=== PATIENT | female | born 1980 | race Caucasian/White ===

== ENCOUNTER 2017-12-25 07:30 | Inpatient (IN) ==
[2017-12-25] MEDS ORDERED: Albuterol 2.5 MG/3 ML NEBULIZER IH ONE (07:57)
[2017-12-25] MEDS ORDERED: Albuterol 2.5 MG/3 ML NEBULIZER ONE (08:00)
[2017-12-25] MEDS ORDERED: Plasma-Lyte A (PH 7.4) 1,000 ML IVC SCH (08:00)
[2017-12-25] MEDS ORDERED: *HR* Midazolam HCl 2 MG/2 ML VIAL ONE (08:02)
[2017-12-25] MEDS ORDERED: *HR* FentaNYL (PF) 100 MCG/2 ML VIAL ONE ×2 (08:02→10:03)
[2017-12-25] MEDS ORDERED: *HR* Succinylcholine 200 MG/10 ML VIAL IVP ONE (08:02)
[2017-12-25] MEDS ORDERED: Lidocaine -MPF 2% 2 ML VIAL ONE (08:02)
[2017-12-25] MEDS ORDERED: *HR* Propofol 200 MG/20 ML VIAL IVP ONE (08:02)
[2017-12-25] MEDS ORDERED: *HR* Rocuronium Bromide 50 MG/5 ML VIAL ONE (08:05)
--- NOTE | 2017-12-25 08:32 | Anesthesia Evaluation PreOp ---
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 Lap.) : No Test: Negative (12/19/2017) Alcohol Use: none Drug use: none Medications and Allergies No Known Home Drugs 12/25/17 [History] 3 Allergy/AdvReac Type Severity Reaction Status Date / Time No Known Allergies Allergy Verified 12/25/17 08:03 - Meds/Allergy Pre-op Review Medications Reviewed: Yes Allergies Reviewed: Yes Beta Blockers on Current Med List: No Anesthesia Results - Labs Laboratory Tests 12/01/17 12/01/17 12/19/17 14:50 14:50 08:45 WBC 9.7 Hgb 14.3 Hct 43.9 Plt Count 277 Sodium 137 Potassium 3.8 Chloride 104 Carbon Dioxide 28 BUN 17 Creatinine 0.73 Serum , Qual 12/19/17 08:45 WBC Hgb Hct Plt Count Sodium Potassium Chloride Carbon Dioxide BUN Creatinine Serum , Qual Negative - Imaging EKG: report reviewed (SINUS RHYTHM WITH SINUS ARRHYTHMIA INCOMPLETE RIGHT BUNDLE BRANCH BLOCK) Anesthesia Exam O2 Sat Height 1.68 m Height 1.68 m Height 1.68 m Weight 99.337 kg Weight 99.337 kg Weight 99.337 kg O2 Sat by Pulse Oximetry 99 O2 Sat by Pulse Oximetry 99 Vital Signs Temp Pulse Resp BP Pulse Ox 98.8 F 83 18 115/76 99 12/25/17 07:55 12/25/17 07:55 12/25/17 07:55 12/25/17 07:55 12/25/17 07:55 NPO (# of Hours): > 8 Hrs Pain Scale: 0 Pain Scale Used: Numeric (1 - 10) - HEENT Pupil (Motor): Pupils equal, EOMI Mallampati: II Teeth: Missing Denture Type: Upper: Complete, Lower: Partial Oral Opening: Greater than 3 - PHARMACY BENEFIT MANAGER LOC: Oriented PHARMACY BENEFIT MANAGER Motor: Normal RUE, Normal LUE, Normal RLE, Normal LLE, Normal Face PHARMACY BENEFIT MANAGER Sensory: Normal: RUE, LUE, RLE, LLE, Face - Cardiac Rhythm: Regular Murmur: None JVD: No Carotid Bruit: No - Pulmonary Breath Sounds: bilateral Clear Respiratory Effort: Symmetrical Anesthesia Assess/Plan ASA Score: 2 Modified Jessica Scale for Level of Consciousness: Cooperative, oriented, and tranquil Anesthetic Plan: General Autologous Blood: Yes Monitoring Plan: Standard Monitors Recovery Plan: PACU
[2017-12-25] MEDS ORDERED: Naloxone 0.4 MG/ML INJ IVP PRN (08:35)
--- NOTE | 2017-12-25 08:35 | History & Physical Report ---
Date of Encounter: 12/25/17 Time of Encounter: 08:34 24 Hour HP Update - Instructions Instructions: If the History and Physical is less than 30 days old and was completed prior to A.M. admission and or procedure and has NOT been updated on calendar day of procedure please complete this update prior to performing procedure. - Update Patient reports changes in Medical Condition: No Changes in examination, assessment, or condition: No Changes in Medication: No Preop tests/diagnostics Reviewed: Yes Surgery Remains Indicated: Yes Consent for Planned Operative Procedure(s) Verified: Yes - Pre-Operative Checklist Preoperative Checklist Indicated: Yes Prophylactic Antibiotic Ordered: Yes Home Medications Include Beta Jeny: No Beta Jeny Taken Today (Day of Surgery): No Beta Jeny Taken Yesterday (Day Prior to Surgery): No Is VTE Prophylaxis Indicated?: Yes
[2017-12-25] MEDS ORDERED: *HR* Morphine Sulfate/PF 10 MG/10 ML AMPUL ONE (08:47)
[2017-12-25] MEDS ORDERED: EPHEDrine 50 MG/ML VIAL ONE (08:53)
[2017-12-25] MEDS ORDERED: Water for inj. (sterile) 10 ML IV ONE (09:30)
[2017-12-25] MEDS ORDERED: Ondansetron 4 MG/2 ML VIAL ONE (09:43)
[2017-12-25] MEDS ORDERED: Dexamethasone 4 MG/ML VIAL ONE (09:43)
[2017-12-25] MEDS ORDERED: CeFAZolin Syringe 2,000MG/20 ML SYR IVPB ONE (10:00)
[2017-12-25] MEDS ORDERED: *HR* Promethazine 25 MG/ML VIAL IVP PRN (10:03)
[2017-12-25] MEDS ORDERED: Ondansetron 4 MG/2 ML VIAL IVP ONE (10:03)
[2017-12-25] MEDS ORDERED: ceFAZolin 2,000 MG in Water for inj. (sterile) 20 ML IVP ONE (10:08)
[2017-12-25] MEDS ORDERED: Acetaminophen IV 1,000 MG/100 ML INFUS..BTL ONE (10:08)
[2017-12-25] MEDS ORDERED: Ketorolac 30 MG/ML VIAL ONE (10:18)
--- NOTE | 2017-12-25 11:54 | OB/GYN Procedure Note ---
OB-SUPERINTENDENT SERVICE: Procedure - Diagnosis Date of procedure: 12/25/17 Pre-op diagnosis: pelvic pain, severe pelvic adhesive disease, adenomyosis, dyspareunia Post-op diagnosis: same - Procedure Procedure: LEANN, BS, excision of endometrioma on left ovary Surgeon: Bebe Crowell Was there an electrician assistant present: Yes Photographic Developer And Printer: Dustin Sawyer Anesthesia Type: General Estimated blood loss (cc): 200 Fluids: crystalloid Procedure Complications: none Specimens collected: uterus, cervix, tubes, excised endometrioma Disposition: same day Findings: entire anterior wall of the uterus attached to the bladder, omentum adherent to ant abd wall, adhesions communicating large bowel to uterus. Narrative: Indications: Mrs Hanson is a 37 y/o s/p diagnostic laparosocpy for pelvic pain, dyspareunia and adenomyosis, possibly endometriosis. She was found to have severe pelvic adhesive disease. She has had 3 C/S and the decision was made to perform a total abdominal hysterectomy for complete resolution. Procedure: After informed consent was obtained, the patient was taken to the Operating Room where general anesthesia was administered without difficulty. The patient was then placed in dorsal lithotomy position, prepped and draped in the usual sterile fashion. A pfannensteil incision was made around the old scar which was excised before the incision was carried down to the underlying layer of the fascia. The fascia was excised and extended laterally with Fernández scissors. The rectus muscle was then in the midline. The peritoneum was identified and entered bluntly to reveal the omentum. The omentum was adherent to the anterior abdominal wall. This was taken down by suture ligation as well as with blunt dissection. The abdomen was explored and the above findings noted. Parking sponges were placed into the abdomen. We proceeded to dissect the anterior wall of the uterus off the bladder painstakingly using both sharp and blunt dissection. After about 30 minutes of dissection, we were able to identify the round ligaments. The round ligaments were identified bilaterally, clamped with the Enseal device, coagulated and cut. Hemostasis was achieved. The uterovarian ligaments bilaterally were then isolated through a broad ligament window created from taking down the round ligaments. The uterovarian ligaments bilaterally were clamped, coagulated and cut with the Enseal device. Both uterine and ovarian vessels were noted to be hemostatic. Attention was then turned to the vesicouterine peritoneum and the bladder was bluntly dissected off further to reveal the cervix. The uterine vessels were skeletonized, then clamped, coagulated and cut with the Enseal device on both sides. This process was continued down to the level of the cardinal ligaments until we felt it was safe to apply Z-clamps tip to tip beneath the cervix. A pair of scissors was used to amputate the uterus and cervix. The vaginal cuff was closed in multiple figure of eight sutures of 0-vicryl. Amee was applied to the cervix. The Enseal device was then used to amputate the tubes and excise a smll endometrioma that was located on the left ovary. Surgical sites were noted to be hemostatic. Packing sponges were removed and the fascia was then closed with #0 Vicryl. The subcutaneous tissue was closed with 3-0 vicryl. The skin was closed with 4-0 vicryl. A cystoscopy was performed which showed flow of urine from both ureteral orifices and no bladder injuries. The patient tolerated the procedure well. The sponge, lap, and needle counts were correct x2. She was taken to the recovery room in stable condition.
[2017-12-25] MEDS: MORPHINE SUL Oral CONC 10 MG/0.5 ML ORAL.SYG SL PRN ×3 (12:19→14:42)
--- NOTE | 2017-12-25 12:52 | Anesthesia Evaluation Post Op ---
Date of Encounter: 12/25/17 Time of Encounter: 12:51 - Vital Signs Vital Signs: Vital Signs/O2 Sat, Most Current Temp Pulse Resp BP Pulse Ox 99.9 F H 83 16 121/68 96 12/25/17 12:31 12/25/17 12:41 12/25/17 12:41 12/25/17 12:41 12/25/17 12:41 - Lungs Lungs: Clear Ascult./Percussion - Airway Airway: Non-obstructed - Cardiovascular Regular Rate - Mental Status Mental Status: Alert & Oriented, Answers Appropriately - Pain Pain Scale: 0 Pain Scale used: Numeric (1 - 10) - Nausea Vomiting Nausea Vomiting: Not Present - Hydration Hydration: NPO, Whyte catheter - Discharge PostOp Status: Transfer Patient to floor
[2017-12-25] MEDS: Ringers Solution, Lactated 1,000 ML IVC SCH (16:56)
[2017-12-25] MEDS: Ondansetron 4 MG/2 ML VIAL IVP PRN (19:35)
[2017-12-25] MEDS: *HR* OxyCODONE/APAP 5/325 TABLET PO PRN (21:10)
[2017-12-26] MEDS: *HR* OxyCODONE/APAP 5/325 TABLET PO PRN ×5 (02:26→21:29)
[2017-12-26 04:59] LABS: Basophils % 0.2 %; Eosinophils % 0.1 %; Hematocrit 36.7 % (35.3-44.9); Immature Granulocytes % 0.5 % (0-4); Lymphocytes # 1.5 K/mcL (0.6-4.6); Lymphocytes % 8.4 %; Mean Corpuscular HGB Conc 32.2 g/dL (31.6-35.5); Mean Corpuscular Hemoglobin 29.7 pg (28.0-33.3); Mean Corpuscular Volume 92.4 fL (83.0-100.0); Mean Platelet Volume 11.1 fL (9.4-12.4); Monocytes # 1.3 K/mcL (0.0-1.3); Monocytes % 7.2 %; Neutrophils # 14.6 K/mcL (1.6-8.9); Nucleated Red Blood Cells 0.2 /100 WBC (0); Platelet Count 248 K/mcL (140-400); Red Blood Count 3.97 M/mcL (3.82-4.97); Red Cell Distribution Width 13.2 % (11.5-14.5); Segmented Neutrophils % 83.6 %
[2017-12-26 05:09] LABS: Hemoglobin 11.8 g/dL (11.5-15.4)
--- NOTE | 2017-12-26 07:46 | OB/GYN Progress Note ---
Date of Encounter: 12/26/17 Time of Encounter: 07:42 - Assessment and Plan (1) S/P complete hysterectomy Current Visit: Yes Status: Acute I counseled the patient that she has hypoactive bowel sounds so she should take it easy with breakfast starting with her coffee first seeing if she tolerates it before going on to her toast, she wants to go home so I will have her ambulate, urinate and if all is well and her pain continues to be under control, I will discharge her later tonight, dressing will be removed tonight, continue current inpt care Subjective - Subjective Interval history: patient doing very well, moving from chair to bed, tolerated clears, wants breakfast, no flatuce yet, pain is under control, berger was taken out around 5 this AM, not yet urinated Objective - Vital Signs Latest vital signs: Vital Signs Temp Pulse Resp BP Pulse Ox 12/26/17 02:50 98.6 F 80 16 103/68 97 12/25/17 23:13 98.3 F 86 14 112/68 96 12/25/17 19:55 98.2 F 88 16 107/73 97 12/25/17 16:15 98.2 F 98 16 116/73 97 12/25/17 15:15 98.1 F 95 16 109/71 97 12/25/17 14:15 97.9 F 102 16 108/71 96 12/25/17 13:45 99.1 F 94 18 119/73 96 12/25/17 13:15 97.8 F 86 16 114/76 98 12/25/17 12:51 83 18 116/72 96 12/25/17 12:41 83 16 121/68 96 12/25/17 12:31 99.9 F H 87 16 114/67 97 12/25/17 12:21 84 18 118/70 97 12/25/17 12:11 94 16 116/65 96 12/25/17 12:01 100.1 F H 100 12 122/87 100 12/25/17 08:10 18 115/76 99 12/25/17 07:55 98.8 F 83 18 115/76 99 Intake and Output 12/25/17 12/25/17 12/26/17 15:59 23:59 07:59 Intake Total 240 / 240 440 / 440 Output Total 300 / 300 500 / 500 500 / 500 Balance -300 / -300 -260 / -260 -60 / -60 Intake: Oral 240 / 240 440 / 440 Output: Estimated Blood Loss 200 / 200 Urine Amount (Catheter) 100 / 100 Catheter 500 / 500 500 / 500 Other: Weight 99.337 kg 100.607 kg Patient Weight 12/26/17 23:59 Weight 100.607 kg - I&O's I&O's: Intake & Output 12/23/17 12/24/17 12/25/17 12/26/17 22:59 23:59 23:59 23:59 Intake Total 240 / 240 440 / 440 Output Total 800 / 800 500 / 500 Balance -560 / -560 -60 / -60 Weight 99.337 kg 100.607 kg - Exam Lungs: bilateral: normal Chest: Normal S1, Normal S2 Extremities: Present: normal Abdomen: Present: soft Incision OB: Present: dressed - Labs Labs: Abnormal lab results WBC 17.5 K/mcL (4.3-11.1) H 12/26/17 04:16 Neutrophils # 14.6 K/mcL (1.6-8.9) H 12/26/17 04:16 Nucleated RBCs/100 WBC 0.2 /100 WBC (0) H 12/26/17 04:16 Consult Discharge Plan - Plan Referrals: René De León DO [Primary Care Provider] -
[2017-12-26] MEDS: Ondansetron 4 MG/2 ML VIAL IVP PRN (10:45)
[2017-12-26] MEDS: Ringers Solution, Lactated 1,000 ML IVC SCH (13:10)
[2017-12-26] MEDS: Ibuprofen 600 MG TABLET PO PRN ×2 (17:43→22:47)
[2017-12-26] MEDS ORDERED: *HR* OxyCODONE Immed Rel 5 MG TABLET PO ONE (17:54)
[2017-12-26] MEDS: Simethicone 80 MG TAB.CHEW PO PRN (22:47)
[2017-12-27] MEDS: *HR* OxyCODONE/APAP 5/325 TABLET PO PRN (03:50)
[2017-12-27] MEDS: Simethicone 80 MG TAB.CHEW PO PRN (04:30)
--- NOTE | 2017-12-27 07:03 | OB/GYN Progress Note ---
Date of Encounter: 12/27/17 Time of Encounter: 07:01 - Assessment and Plan (1) S/P complete hysterectomy Current Visit: Yes Status: Acute ok for discharge, will see patient in the office in 2 weeks Subjective - Subjective Interval history: patient doing very well this AM, ambulating, tolerating PO, urinating without complaints, pain is under control, wants to go home Objective - Vital Signs Latest vital signs: Vital Signs Temp Pulse Pulse Resp BP Pulse Ox 12/27/17 03:45 98.1 F 81 14 107/65 97 12/27/17 00:20 97.8 F 75 75 14 92/60 96 12/26/17 19:15 98.1 F 78 16 118/72 99 12/26/17 16:32 97.6 F 83 16 108/65 96 12/26/17 11:37 98.2 F 87 16 111/74 96 12/26/17 07:45 98.6 F 84 14 103/69 98 Intake and Output 12/26/17 12/26/17 12/27/17 15:59 23:59 07:59 Intake Total 600 / 600 Output Total 1100 / 1100 400 / 400 Balance -1100 / -1100 200 / 200 Intake: Oral 600 / 600 Output: Urine 1100 / 1100 400 / 400 Other: Weight 103.782 kg Patient Weight 12/27/17 23:59 Weight 103.782 kg - I&O's I&O's: Intake & Output 12/24/17 12/25/17 12/26/17 12/27/17 23:59 23:59 23:59 23:59 Intake Total 240 / 240 2040 / 2040 Output Total 800 / 800 1999 / 1999 Balance -560 / -560 40 / 40 Weight 99.337 kg 100.607 kg 103.782 kg - Exam Lungs: bilateral: normal Chest: Normal S1, Normal S2 Extremities: Present: normal Abdomen: Present: soft Incision OB: Present: normal, intact - Labs Labs: Abnormal lab results WBC 17.5 K/mcL (4.3-11.1) H 12/26/17 04:16 Neutrophils # 14.6 K/mcL (1.6-8.9) H 12/26/17 04:16 Nucleated RBCs/100 WBC 0.2 /100 WBC (0) H 12/26/17 04:16 Consult Discharge Plan - Plan Referrals: René De León DO [Primary Care Provider] -
--- NOTE | 2017-12-27 07:06 | Discharge Summary ---
Date of Encounter: 12/27/17 Time of Encounter: 07:05 - Discharge Diagnosis (1) S/P complete hysterectomy Priority: Primary Status: Acute Comments: patient doing very well this AM, ambulating, tolerating PO, urinating without complaints, pain is under control, wants to go home ok for discharge - Discharge Medications Home Medications: No Known Home Drugs 12/25/17 [History] Allergies/Adverse Reactions: 3 Allergy/AdvReac Type Severity Reaction Status Date / Time No Known Allergies Allergy Verified 12/25/17 08:03 Data Procedures and tests throughout hospitalization: Laboratory Tests 12/26/17 04:16 WBC 17.5 H RBC 3.97 Hgb 11.8 D Hct 36.7 MCV 92.4 MCH 29.7 MCHC 32.2 RDW 13.2 Plt Count 248 MPV 11.1 Immature Gran % 0.5 Seg Neutrophils % 83.6 Lymphocytes % 8.4 Monocytes % 7.2 Eosinophils % 0.1 Basophils % 0.2 Neutrophils # 14.6 H Lymphocytes # 1.5 Monocytes # 1.3 Eosinophils # 0.0 Basophils # 0.0 Nucleated RBCs/100 WBC 0.2 H Date of admission: 12/25/17 13:11 Primary care physician: René De León DO - Patient Status Disposition: Home, Self-Care Condition: Good Functional capacity at discharge: independent ambulation Overall status at discharge: patient is progressing back to baseline - Discharge Instructions Follow Up With: René De León DO [Primary Care Provider] - Hospital Course EMPLOYMENT REPRESENTATIVE Time Attestation: Total time spent providing and/or coordinating discharge services: Exam - Constitutional Vitals: Temp Pulse Resp BP Pulse Ox 98.1 F 81 14 107/65 97 12/27/17 03:45 12/27/17 03:45 12/27/17 03:45 12/27/17 03:45 12/27/17 03:45 General appearance IM: A&O X 3 - Respiratory Respiratory exam: Present: CTAB - Cardiovascular Cardiovascular exam IM: Present: RRR - GI/Abdominal GI/Abdominal exam IM: normal bowel sounds Incision: normal, intact - External exam: normal external exam - Extremities Exam Extremities exam IM: Present: warm - VTE Documentation of Mechanical Device: Intermittent pneumatic compression device
[2017-12-27 07:44] VITALS: BP 107/75
== END 2017-12-27 08:16 | disposition home or self-care (01) | DRG 513 ==
LOC: SAMDAY 07:30 → 1NENUOBS 13:11
PROVIDERS: ADMIT Student in an Organized Health Care Education/Training Program; ATTEND Student in an Organized Health Care Education/Training Program

== ENCOUNTER 2019-07-04 10:05 | Inpatient (IN) ==
[2019-07-04 11:17] LABS: Basophils % 0.2 %; Eosinophils # 0.1 K/mcL (0.0-0.6); Eosinophils % 0.7 %; Hematocrit 40.2 % (35.3-44.9); Hemoglobin 13.6 g/dL (11.5-15.4); Immature Granulocytes % 0.6 % (0-4); Lymphocytes # 1.1 K/mcL (0.6-4.6); Lymphocytes % 6.2 %; Mean Corpuscular HGB Conc 33.8 g/dL (31.6-35.5); Mean Corpuscular Hemoglobin 29.6 pg (28.0-33.3); Mean Corpuscular Volume 87.6 fL (83.0-100.0); Mean Platelet Volume 10.7 fL (9.4-12.4); Monocytes # 1.1 K/mcL (0.0-1.3); Monocytes % 6.5 %; Neutrophils # 14.8 K/mcL (1.6-8.9); Platelet Count 181 K/mcL (140-400); Red Blood Count 4.59 M/mcL (3.82-4.97); Red Cell Distribution Width 13.2 % (11.5-14.5); Segmented Neutrophils % 85.8 %; White Blood Count 17.2 K/mcL (4.3-11.1)
[2019-07-04 11:30] LABS: Calcium 8.7 mg/dL (8.6-10.3); Potassium 3.7 mEq/L (3.5-5.1)
[2019-07-04 12:12] LABS: Bilirubin,Urine Small (Negative); Blood,Urine Moderate (Negative); Color,Urine Dark Yellow (Yellow); Glucose,Urine (UA) Normal (Normal); Ketones,Urine Negative (Negative); Leukocyte Esterase,Urine Large (Negative); Nitrite,Urine Negative (Negative); PH,Urine 6.5 pH Units (5.0-8.0); Protein,Urine >=300 mg/dL (Neg-Trace); Specific Gravity,Urine 1.024 (1.010-1.025)
[2019-07-04 12:14] LABS: Bacteria,Urine Moderate per hpf (None-Few); Hyaline Casts,Urine Few per lpf (None-Few); RBC,Urine 15-30 per hpf (0-3); Squamous Epithelial Cell,Urine Many per lpf (None-Few); WBC,Urine TNTC per hpf (0-3)
[2019-07-04 12:19] LABS: Clarity,Urine Hazy (Clear)
[2019-07-04] MEDS ORDERED: 0.9 % Sodium Chloride 1,000 ML IVC ONE ×3 (12:19→19:28)
[2019-07-04] MEDS ORDERED: *HR* HYDROmorphone (PF) 1 MG/ML SYRINGE IVP ONE ×2 (12:22→13:27)
[2019-07-04] MEDS ORDERED: *HR* Promethazine 25 MG/ML VIAL IVP ONE (12:22)
[2019-07-04] MEDS ORDERED: cefTRIAXone 1,000 MG in Water for inj. (sterile) 10 ML IVP ONE (12:29)
[2019-07-04] MEDS ORDERED: *HR* Promethazine 25 MG/ML VIAL IM ONE (12:45)
--- NOTE | 2019-07-04 13:20 | Emergency Department Note ---
Disposition Clinical Impression: Nephrolithiasis, Left ureteral stone Urinary tract infection Qualifiers: Urinary tract infection type: site unspecified Hematuria presence: with hematuria Qualified Code(s): N39.0 - Urinary tract infection, site not specified Disposition: Admitted As Inpatient Condition: Good Time of Disposition: 14:14 Abdominal Pain HPI - General Chief Complaint: ED Abdominal Pain Stated Complaint: abd pain Time Seen by Provider: 07/04/19 12:13 Source: patient Nursing Notes Reviewed: Yes Vital Signs Reviewed: Yes - History of Present Illness HPI Narrative: 39 yo woman diagnosed with 7 mm kidney stone in left ureter 07/01/19 returned to ED today due to increased pain, fever to 102F at home and repeated vomiting. Patient states she has not been able to eat or drink today. She was sent home with morphine and Zofran, which did not help her symptoms. Pain Scale: 8 - Related Data Home Medications Medication Instructions Recorded Confirmed No Known Home Drugs 07/04/19 07/04/19 Allergies Allergy/AdvReac Type Severity Reaction Status Date / Time No Known Allergies Allergy Verified 07/04/19 10:38 All systems ED: reviewed and negative except as stated. 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 Pupils equal and reactive. Cardio: Regular rate and rhythm, no murmur, no peripheral edema, good perfusion to all extremities, no cyanosis Resp: Equal breath sounds bilaterally, no wheeze, no cough GI: Abdomen soft, nondistended, +diffusely tender to palpation. No ecchymoses, no rash. : +Mild suprapubic tenderness; no distention MSK: Normal ROM, no joint swelling or erythema Neuro: CNI-XII intact, strength and sensation WNL Psych: Appropriate affect - General Limitations: no limitations General appearance: alert, in no apparent distress Course Course Narrative: Patient very uncomfortable on presentation. Given recent CT and no significant changes to symptoms, will treat for ongoing nephrolithiasis and evaluate for signs of infection. CBC, BMP, UA, KUB ordered. Given dilaudid and phenergan with IVF bolus. Anticipate admission for complicated kidney stone. Vital Signs Temperature 98.7 F 07/04/19 10:39 Pulse Rate 117 07/04/19 10:39 Respiratory Rate 20 07/04/19 10:39 Blood Pressure 106/72 07/04/19 10:39 O2 Sat by Pulse Oximetry 96 07/04/19 10:39 Temperature 98.7 F 07/04/19 10:39 Pulse Rate 99 07/04/19 14:09 Respiratory Rate 16 07/04/19 14:09 Blood Pressure 117/82 07/04/19 14:09 O2 Sat by Pulse Oximetry 99 07/04/19 14:09 Oxygen Delivery Oxygen Delivery Room Air Abdominal Pain - MDM Narrative Medical decision making narrative: VS stable. Increasing leukocytosis (17.2), UA consistent with UTI. Culture from 07/01/19 positive for E. coli. Rocephin 1g given. Plan to admit for management of complicated nephrolithiasis and possible stone removal. ED opted to not repeat CT given scan on 07/01 and presence of stone on KUB today. Patient agreed with plan. Hospitalist accepted admission. Urology consulted, agreed with admission and will see her. Although hospitalist requested repeat CT, urology stated that it would not be necessary, so we decided not to repeat it while she is in the ED. - Differential Diagnosis Differential Diagnosis: Likely: calculus of kidney - Medical Records Medical records reviewed: Yes I reviewed the patient's medical records. - Lab Data Lab results reviewed: Yes I reviewed the patient's lab results. Result diagrams: 07/04/19 10:57 07/04/19 10:57 Lab Results 07/04/19 07/04/19 07/04/19 Range/Units 10:57 10:57 11:52 WBC 17.2 H (4.3-11.1) K/mcL RBC 4.59 (3.82-4.97) M/mcL Hgb 13.6 (11.5-15.4) g/dL Hct 40.2 (35.3-44.9) % MCV 87.6 (83.0-100.0) fL MCH 29.6 (28.0-33.3) pg MCHC 33.8 (31.6-35.5) g/dL RDW 13.2 (11.5-14.5) % Plt Count 181 (140-400) K/mcL MPV 10.7 (9.4-12.4) fL Immature Gran % 0.6 (0-4) % Seg Neutrophils % 85.8 % Lymphocytes % 6.2 % Monocytes % 6.5 % Eosinophils % 0.7 % Basophils % 0.2 % Neutrophils # 14.8 H (1.6-8.9) K/mcL Lymphocytes # 1.1 (0.6-4.6) K/mcL Monocytes # 1.1 (0.0-1.3) K/mcL Eosinophils # 0.1 (0.0-0.6) K/mcL Basophils # 0.0 (0.0-0.2) K/mcL Sodium 133 L (136-145) mEq/L Potassium 3.7 (3.5-5.1) mEq/L Chloride 99 (98-107) mEq/L Carbon Dioxide 25 (23-29) mEq/L BUN 22 H (6-20) mg/dL Creatinine 1.30 H (0.60-1.20) mg/dL Est GFR ( Amer) 55 L (> 60) Est GFR (Non-Af Amer) 46 L (> 60) BUN/Creatinine Ratio 17 (6-26) Glucose 105 (70-105) mg/dL Calculated Osmolality 280 (280-300) Calcium 8.7 (8.6-10.3) mg/dL Urine Color Dark Yellow (Yellow) Urine Clarity Hazy A (Clear) Urine pH 6.5 (5.0-8.0) pH Units Ur Specific Seymour 1.024 (1.010-1.025) Urine Protein >=300 H (Neg-Trace) mg/dL Urine Glucose (UA) Normal (Normal) mg/dL Urine Ketones Negative (Negative) mg/dL Urine Blood Moderate H (Negative) Urine Nitrite Negative (Negative) Urine Bilirubin Small H (Negative) Urine Urobilinogen 4.0 H (Normal) mg/dL Ur Leukocyte Esterase Large H (Negative) Urine Microscopic RBC 15-30 H (0-3) per hpf Urine Microscopic WBC TNTC H (0-3) per hpf Ur Squamous Epith Cells Many H (None-Few) per lpf Urine Bacteria Moderate H (None-Few) per hpf Hyaline Casts Few (None-Few) per lpf Ur Culture Indicated? YES A (NO) - Radiology Data Radiology results reviewed: Yes I reviewed the patient's radiology results. KUB X-Ray 07/04/19 12:46 IMPRESSION: 7 mm x 5 mm calculus distal left ureter correlating to findings seen on CT from 3 days earlier. D/ / Jaun Buck MD / Jaun Buck MD Interpreting Provider: Jaun Buck MD - EKG Data EKG attestation: Yes I reviewed and interpreted this EKG. EKG shows normal: sinus rhythm Rate: tachycardia Interpretation: no acute changes, unchanged when compared to prior tracing (date) (07/01/19)
--- NOTE | 2019-07-04 13:39 | Emergency Department Note ---
Disposition Clinical Impression: Nephrolithiasis, Left ureteral stone Urinary tract infection Qualifiers: Urinary tract infection type: site unspecified Hematuria presence: with hematuria Qualified Code(s): N39.0 - Urinary tract infection, site not specified; R31.9 - Hematuria, unspecified Disposition: Admitted As Inpatient Condition: Good Time of Disposition: 14:14 General Adult HPI - General Chief complaint: ED Abdominal Pain Stated complaint: abd pain Time Seen by Provider: 07/04/19 12:13 Source: patient Limitations: no limitations Nursing Notes Reviewed: Yes Vital Signs Reviewed: Yes - History of Present Illness Pain Scale: 8 - Related Data Home Medications Medication Instructions Recorded Confirmed No Known Home Drugs 07/04/19 07/04/19 Allergies Allergy/AdvReac Type Severity Reaction Status Date / Time No Known Allergies Allergy Verified 07/04/19 10:38 Constitutional: Reports: fever, chills Gastrointestinal: Reports: abdominal pain, nausea, vomiting Past Medical History - Past Medical History Medical history: Reports: kidney stones Surgical history: Reports: , other Psychiatric history: Reports: no psych history 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: dysfunctional uterine bleed, endometriosis - Social History Smoking Status: Current every day smoker Smokeless Tobacco Status: No Alcohol use: Reports: none Drug use: Reports: none Physical Exam - General Limitations: no limitations General appearance: alert, in no apparent distress Course Vital Signs Temperature 98.7 F 07/04/19 10:39 Pulse Rate 117 07/04/19 10:39 Respiratory Rate 20 07/04/19 10:39 Blood Pressure 106/72 07/04/19 10:39 O2 Sat by Pulse Oximetry 96 07/04/19 10:39 Temperature 98.7 F 07/04/19 10:39 Pulse Rate 99 07/04/19 14:09 Respiratory Rate 16 07/04/19 14:09 Blood Pressure 117/82 07/04/19 14:09 O2 Sat by Pulse Oximetry 99 07/04/19 14:09 Oxygen Delivery Oxygen Delivery Room Air Medical Decision Making - Medical Records Medical records reviewed: Yes I reviewed the patient's medical records. - Lab Data Lab results reviewed: Yes I reviewed the patient's lab results. Result diagrams: 07/04/19 10:57 07/04/19 10:57 Lab Results 07/04/19 07/04/19 07/04/19 Range/Units 10:57 10:57 11:52 WBC 17.2 H (4.3-11.1) K/mcL RBC 4.59 (3.82-4.97) M/mcL Hgb 13.6 (11.5-15.4) g/dL Hct 40.2 (35.3-44.9) % MCV 87.6 (83.0-100.0) fL MCH 29.6 (28.0-33.3) pg MCHC 33.8 (31.6-35.5) g/dL RDW 13.2 (11.5-14.5) % Plt Count 181 (140-400) K/mcL MPV 10.7 (9.4-12.4) fL Immature Gran % 0.6 (0-4) % Seg Neutrophils % 85.8 % Lymphocytes % 6.2 % Monocytes % 6.5 % Eosinophils % 0.7 % Basophils % 0.2 % Neutrophils # 14.8 H (1.6-8.9) K/mcL Lymphocytes # 1.1 (0.6-4.6) K/mcL Monocytes # 1.1 (0.0-1.3) K/mcL Eosinophils # 0.1 (0.0-0.6) K/mcL Basophils # 0.0 (0.0-0.2) K/mcL Sodium 133 L (136-145) mEq/L Potassium 3.7 (3.5-5.1) mEq/L Chloride 99 (98-107) mEq/L Carbon Dioxide 25 (23-29) mEq/L BUN 22 H (6-20) mg/dL Creatinine 1.30 H (0.60-1.20) mg/dL Est GFR ( Amer) 55 L (> 60) Est GFR (Non-Af Amer) 46 L (> 60) BUN/Creatinine Ratio 17 (6-26) Glucose 105 (70-105) mg/dL Calculated Osmolality 280 (280-300) Calcium 8.7 (8.6-10.3) mg/dL Urine Color Dark Yellow (Yellow) Urine Clarity Hazy A (Clear) Urine pH 6.5 (5.0-8.0) pH Units Ur Specific [place] 1.024 (1.010-1.025) Urine Protein >=300 H (Neg-Trace) mg/dL Urine Glucose (UA) Normal (Normal) mg/dL Urine Ketones Negative (Negative) mg/dL Urine Blood Moderate H (Negative) Urine Nitrite Negative (Negative) Urine Bilirubin Small H (Negative) Urine Urobilinogen 4.0 H (Normal) mg/dL Ur Leukocyte Esterase Large H (Negative) Urine Microscopic RBC 15-30 H (0-3) per hpf Urine Microscopic WBC TNTC H (0-3) per hpf Ur Squamous Epith Cells Many H (None-Few) per lpf Urine Bacteria Moderate H (None-Few) per hpf Hyaline Casts Few (None-Few) per lpf Ur Culture Indicated? YES A (NO) - Radiology Data Radiology results reviewed: Yes I reviewed the patient's radiology results. KUB X-Ray 07/04/19 12:46 IMPRESSION: 7 mm x 5 mm calculus distal left ureter correlating to findings seen on CT from 3 days earlier. D/ / 07/04/2019 13:24:10 Jaun Buck MD / latosha Interpreting Provider: Jaun Buck MD - EKG Data EKG #1 EKG attestation: Yes I reviewed and interpreted this EKG. EKG results narrative: EKG showed sinus tachycardia with ventricular rate of 113. Nonspecific T-wave abnormality. No significant ST segment elevation or depression. No arrhythmia or ectopy. Attestation Statement - Attestation Attestation: I, Beto Jay MD, personally evaluated this patient and discussed their management with the resident physician. I reviewed the resident's note and agree with the documented findings, medical decision making, and plan of care. I reviewed the residents documentation and agree with the residents assessment and plan of care. I have personally had face to face time with the patient. I personally supervised and was present for the gonzalez/critical portions of the following procedures completed by the resident: EKG interpretation. 39-year-old female who was seen here 3 days ago for left lower abdominal pain. She had acute onset 3 days ago of sharp left mid and lower abdominal pain and mild left flank pain. She was seen here at that time and had a CTA of the abdomen and pelvis which showed a 7 mm stone in the distal left ureter. She returns tonight complaining of persistent pain which has gotten worse. She states last night she started running a fever of 102. Urine has been dark and cloudy. On examination patient is a well-developed obese female in no acute distress. She is alert and oriented 3. There is no cyanosis or diaphoresis. Breath sounds are clear and equal bilaterally. Heart regular with a mild tachycardia. Abdomen soft with normal bowel sounds. Mild left lower quadrant abdominal tenderness and mild to moderate left CVA tenderness. EKG showed sinus tachycardia with ventricular rate of 113. Nonspecific T-wave abnormality. No significant ST segment elevation or depression. No arrhythmia or ectopy. KUB redemonstrates the 5 x 7 mm stone in the distal left ureter. Labs reviewed. WBC 17 which is slightly increased from 3 days ago. Urinalysis shows TNTC WBCs and moderate bacteria. Patient was given IV Rocephin. We will consult urology in the hospitalist for admission.
--- NOTE | 2019-07-04 15:17 | Internal Med History&Physical ---
Date of Encounter: 07/04/19 Time of Encounter: 15:14 Internal Medicine - H&P: HPI Chief complaint: RAFFI machuca Admitted From: Home Plans for Post Hospital Care: Home History of present illness: Ms. Servin is a 39 year old female past medical history of kidney stone who was recently discharged with left-sided ureteral stone with moderate to severe hydronephrosis for outpatient urology follow-up came with complaint of left- sided flank, back and abdominal pain and feeling significantly worse. She started having nausea and vomiting much more severe and was not able to keep anything by mouth since her last discharge. Had fever of 102.4 at home. She had associated chills. Denied any chest pain difficulty breathing. Denies any diarrhea or recent antibiotic use. Patient was admitted in ER and was found to have significant leukocytosis, SARAH and signs of pyelonephritis. Admission was requested for further management. He should have received 1 L of normal saline and ceftriaxone. She does not take any regular medications. She has been eating since her discharge due to nausea and vomiting. Past Med Surg Social Fam HX - Past Medical History Medical history: kidney stones Psychiatric history: no psych history - Past Surgical History Surgical History: , hysterectomy Additional surgical history: rt ovary, romeo lap - Social History Smoking Status: Current every day smoker Smokeless Tobacco Status: No Alcohol use: none Drug use: none - Family History Mother Hx Family Neuromuscular Disorders: Yes - Additional Family History Additional family history: no significant family history on review Internal Medicine - H&P: Meds No Known Home Drugs 07/04/19 [History] Allergy/AdvReac Type Severity Reaction Status Date / Time No Known Allergies Allergy Verified 07/04/19 10:38 All Systems PM: A 10-system review of systems was performed and is negative for pertinent findings except as documented above in the HPI. - Constitutional Vitals: Temp Pulse Resp BP Pulse Ox 98.7 F 99 16 117/82 99 07/04/19 10:39 07/04/19 14:09 07/04/19 14:09 07/04/19 14:09 07/04/19 14:09 Exam: Constitutional: Vitals as noted. Conversant. appears ill Eyes : Sclera white, conjunctiva clear, no lid lag, PEARLA. ENT : Grossly normal hearing. dry mucus membranes. Respiratory : Clear to auscultation bilaterally. No accessory muscle use, rales, rhonchi or wheezes Cardiovascular : tachycardia, +S1, +S2. no murmur, gallop, rubs. No chest wall tenderness GI/Abdominal : Soft, Non-tender, Non-distended, normal bowel sounds, no peritoneal signs. Lt quadrant tenderness and Lt CVA tenderness Musculoskeletal: no deformity noted. no edema,warm extremities, pulses palpable and symmetrical in UE/LE. no calf tenderness. Neurological: AO X3, CN II-XII grossly intact, grossly normal motor and sensory exam. Skin: No skin rash, lesions or ulcers noted. Pych: Good insight and judgement. Intact memory. AOx3. Internal Med - H&P Results - Labs CBC & Chem 7: 07/04/19 10:57 07/04/19 10:57 Labs: Short CBC 07/04/19 Range/Units 10:57 WBC 17.2 H (4.3-11.1) K/mcL Hgb 13.6 (11.5-15.4) g/dL Hct 40.2 (35.3-44.9) % Plt Count 181 (140-400) K/mcL Neutrophils # 14.8 H (1.6-8.9) K/mcL BMP 07/04/19 10:57 Sodium 133 L Potassium 3.7 Chloride 99 Carbon Dioxide 25 BUN 22 H Creatinine 1.30 H Glucose 105 Calcium 8.7 Urine 07/04/19 Range/Units 11:52 Urine Color Dark Yellow (Yellow) Urine Clarity Hazy A (Clear) Urine pH 6.5 (5.0-8.0) pH Units Ur Specific [place] 1.024 (1.010-1.025) Urine Protein >=300 H (Neg-Trace) mg/dL Urine Glucose (UA) Normal (Normal) mg/dL - Impressions ITS Impressions KUB X-Ray 07/04/19 12:46 IMPRESSION: 7 mm x 5 mm calculus distal left ureter correlating to findings seen on CT from 3 days earlier. D/ / 07/04/2019 13:24:10 Jaun Buck MD / latosha Interpreting Provider: Jaun Buck MD - Assessment and Plan (1) Sepsis Current Visit: Yes Status: Acute Assessment and plan: Patient with sepsis criteria including tachycardia, elevated white count and signs of pyelonephritis Recent CT with left sided moderate to severe hydronephrosis with a 7 mm stone. Had KUB x-ray which confirmed distal ureter stone. Patient has UA significant for UTI. Urine Cultures sent from ER . Patient received ceftriaxone in ER and 1 L of bolus. We will give 1 more liter bolus. Obtain lactic acid. Keep on maintenance IV fluids. Obtain blood cultures Urology consulted for possible stenting. We will keep patient nothing by mouth for now. She had last time on Monday and not after that given her nausea and vomiting. Qualifiers: Sepsis type: sepsis due to unspecified organism Sepsis acute organ dysfunction status: with acute organ dysfunction Severe sepsis acute organ dysfunction type: unspecified Severe sepsis shock status: without septic shock Qualified Code(s): A41.9 - Sepsis, unspecified organism; R65.20 - Severe sepsis without septic shock (2) Hydronephrosis Current Visit: Yes Status: Acute Assessment and plan: Likely related to ureteral calculus Urology consulted for possible stent placement. Qualifiers: Hydronephrosis type: with ureteral calculous obstruction Qualified Code(s): N13.2 - Hydronephrosis with renal and ureteral calculous obstruction (3) Acute kidney injury Current Visit: Yes Status: Acute Assessment and plan: Likely component of both prerenal and post-obstruction. We will give 1 more liter of IV fluids and maintenance fluids after. Monitor renal function and avoid nephrotoxic medications. Strict intake and output monitoring. (4) Left ureteral stone Current Visit: Yes Status: Acute Assessment and plan: As above (5) DVT prophylaxis Current Visit: No Status: Acute Assessment and plan: epcd (6) Pyelonephritis Current Visit: Yes Status: Acute Assessment and plan: As above - Time Spent With Patient Total time spent is greater than 50% in coordination of care (as documented) at patient's floor/unit and/or counseling patient:
[2019-07-04] MEDS ORDERED: 0.9 % Sodium Chloride 1,000 ML IVC SCH (15:30)
[2019-07-04] MEDS ORDERED: Ondansetron 4 MG/2 ML VIAL IVP PRN ×2 (16:41→19:28)
[2019-07-04] MEDS ORDERED: *HR* HYDROmorphone (PF) 1 MG/ML SYRINGE IVP PRN ×4 (16:41→19:28)
--- NOTE | 2019-07-04 17:11 | Anesthesia Evaluation PreOp ---
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 Lap.) : No (LEANN) Alcohol Use: none Drug use: none Medications and Allergies No Known Home Drugs 07/04/19 [History] Allergy/AdvReac Type Severity Reaction Status Date / Time No Known Allergies Allergy Verified 07/04/19 10:38 - Meds/Allergy Pre-op Review Medications Reviewed: Yes Allergies Reviewed: Yes Beta Blockers on Current Med List: No Anesthesia Results - Labs 07/04/19 10:57 07/04/19 10:57 - Imaging EKG: report reviewed (SINUS RHYTHM WITH SINUS ARRHYTHMIA INCOMPLETE RIGHT BUNDLE BRANCH BLOCK Electronically Signed On 06-26-2017 17:48:26 EDT by Rainer Zapata MD) Anesthesia Exam Vital Signs/O2 Sat, Most Current Temp Pulse Resp BP Pulse Ox 99.0 F 96 16 99/65 95 07/04/19 16:03 07/04/19 16:03 07/04/19 16:03 07/04/19 16:03 07/04/19 16:03 NPO (# of Hours): > 8 hrs Pain Scale: 0 Pain Scale Used: Numeric (1 - 10) - HEENT Pupil (Motor): Pupils equal, EOMI Mallampati: II Teeth: Missing Denture Type: Upper: Complete, Lower: Partial Oral Opening: Greater than 3 - HELMET HAT BRIM CUTTER LOC: Oriented HELMET HAT BRIM CUTTER Motor: Normal RUE, Normal LUE, Normal RLE, Normal LLE, Normal Face HELMET HAT BRIM CUTTER Sensory: Normal: RUE, LUE, RLE, LLE, Face - Cardiac Rhythm: Regular Murmur: None JVD: No Carotid Bruit: No - Pulmonary Breath Sounds: bilateral Clear Respiratory Effort: Symmetrical Anesthesia Assess/Plan ASA Score: 2 Level of consciousness: Cooperative Anesthetic Plan: General Autologous Blood: Yes Monitoring Plan: Standard Monitors Recovery Plan: PACU
[2019-07-04] MEDS ORDERED: Isovue-300 50 ML VIAL ONE (17:14)
[2019-07-04] MEDS ORDERED: *HR* OxyCODONE Immed Rel 5 MG TABLET PO PRN (17:18)
[2019-07-04] MEDS ORDERED: *HR* Promethazine 25 MG/ML VIAL IVP PRN ×2 (17:18→18:29)
[2019-07-04] MEDS ORDERED: Ondansetron 4 MG/2 ML VIAL IVP ONE ×2 (17:18→18:29)
[2019-07-04] MEDS ORDERED: Albuterol 2.5 MG/3 ML NEBULIZER IH ONE (17:27)
[2019-07-04] MEDS ORDERED: Albuterol 2.5 MG/3 ML NEBULIZER ONE (17:28)
[2019-07-04] MEDS ORDERED: Famotidine 20 MG/2 ML VIAL ONE (17:30)
[2019-07-04] MEDS ORDERED: Acetaminophen IV 1,000 MG/100 ML INFUS..BTL ONE (17:30)
[2019-07-04] MEDS ORDERED: *HR* FentaNYL (PF) 100 MCG/2 ML VIAL ONE (17:45)
[2019-07-04] MEDS ORDERED: *HR* Midazolam HCl 2 MG/2 ML VIAL ONE (17:45)
[2019-07-04] MEDS ORDERED: *HR* Propofol 200 MG/20 ML VIAL IVP ONE (17:45)
[2019-07-04] MEDS ORDERED: Lidocaine -MPF 2% 2 ML VIAL ONE (17:47)
[2019-07-04] MEDS ORDERED: Lidocaine HCL 4 ML Topical Solution (Laryng-O-Jet Kit Sterile Pak) TP ONE (17:47)
[2019-07-04] MEDS ORDERED: Dexamethasone 4 MG/ML VIAL ONE (17:47)
[2019-07-04] MEDS ORDERED: Ondansetron 4 MG/2 ML VIAL ONE (17:47)
[2019-07-04] MEDS ORDERED: *HR* Succinylcholine 200 MG/10 ML VIAL IVP ONE (17:47)
--- NOTE | 2019-07-04 17:50 | Operative Note ---
Date of procedure: 07/04/19 Pre-op diagnosis: Left ureteral stone Post-op diagnosis: same Procedure: Left ureteroscopy, laser lithotripsy, basket stone extraction, and stent placement Implants: 6-Czech by 24 cm double-J stent 16-Czech Whyte catheter Complications: None Anesthesia: ANGIA Surgeon: Shon Ramirez Was there an lpn or medical assistant present: No Estimated blood loss (cc): 1 Specimen: left ureteral ston Condition: stable Disposition: PACU Procedure in Detail: Indications: Meghan is a 39-year-old female who presents with left flank pain. A CT scan showed a 7 mm distal left ureteral stone. She had concern for an infection. She wished to have her stone removed. She elected to undergo a left ureteroscopy, laser lithotripsy, and stent placement. She was aware of the risks of the procedure including but not limited to bleeding, infection, injury to other structures, need for further procedures, need for stent, stent irritation, incomplete treatment, and the risk of anesthesia. She is willing to proceed. Procedure: After informed consent was obtained the patient was brought back to the operating room and placed in supine position. A time out was performed. General anesthesia was administered and an LMA was placed. She was then placed in the lithotomy position. She was prepped and draped in the usual sterile fashion. Cystoscopy was performed. The anterior urethra was normal. There was no evidence of bladder tumors. The ureteral orifices were in the normal orthotopic position. There was no duplication of the ureteral orifices. The zip wire was placed in the left ureteral orifice, and it was brought into the kidney under fluoroscopic guidance. I then advanced the semirigid ureteroscope into the ureter. The stone was fragmented using the 365 micron fiber. The stone fragments were then basket extracted. A 6 Czech by 24cm JJ stent was then placed with good curl seen in the kidney and the bladder. The dangle string was removed. The bladder was drained and the stone fragments. A 16-Czech Whyte catheter was placed. The patient was then awakened from general anesthesia and brought to recovery room in good condition. All sponge, needle, and instrument counts were correct
--- NOTE | 2019-07-04 17:53 | Urology - Consult Note ---
Date of Encounter: 07/04/19 Time of Encounter: 17:50 - Assessment and Plan (1) Kidney stone Current Visit: Yes Status: Acute Assessment and plan: 39-year-old woman with concern for a distal left ureteral stone, urinary tract infection, and nausea is seen in consultation. We reviewed her CT scan. The stone is quite distal. Given its location, I think it is amenable for a left ureteroscopy, laser lithotripsy, and stent placement. She was informed of the risks of the procedure including but not limited to bleeding, infection, injury to other structures, need for further procedures, stent irritation, incomplete fragmentation, ureteral perforation, need for nephrostomy tube, need for open repair, risks unforeseen, and the risk of anesthesia. She is willing to proceed. She has received IV antibiotics. She understands of the increased risk for infection with the ureteroscopic approach. We discussed just placing a stent. She would like to have her stone removed in order to avoid a secondary surgery. (2) Pyelonephritis Current Visit: Yes Status: Acute Urology CN:HPI Consult date: 07/04/19 Reason for consult Urology: Other (Left ureteral stone) History of present illness: 39-year-old woman presents with an approximate one-week history of left flank pain. The pain started about 4 days ago and radiated towards the left groin. The pain was severe. She came to the emergency department. A CT scan was obtained which showed a distal left ureteral stone. She was given pain medication and felt better. She was discharged home. Today she noted temperatures and worsening pain. He has had nausea. She reports having a temperature to 102 degrees. She returned back to the emergency room. She was given antibiotic and admitted. Past Med Surg Social Fam HX - Past Medical History Medical history: kidney stones Additional medical history: UTERINE MASS. ENDOMETRIOSIS Psychiatric history: no psych history - Past Surgical History Surgical History: , hysterectomy Additional surgical history: rt ovary, romeo lap - Social History Smoking Status: Current every day smoker Smokeless Tobacco Status: No Alcohol use: none Drug use: none - Family History Mother Hx Family Neuromuscular Disorders: Yes Medications and Allergies No Known Home Drugs 07/04/19 [History] Allergy/AdvReac Type Severity Reaction Status Date / Time No Known Allergies Allergy Verified 07/04/19 10:38 Review of Systems - Constitutional fever(s), no chills - EENT Nose, mouth and throat: no dizziness - Cardiovascular no chest pain - Respiratory no dyspnea - Gastrointestinal nausea, vomiting - Genitourinary Genitourinary: flank pain, no hematuria - Musculoskeletal no back pain - Integumentary no erythema, no rash - Neurological no weakness - Psychiatric no suicidal ideation - Hematologic/Lymphatic no easy bleeding - Allergic/Immunologic no wheezing Exam Initial Vital Signs Temp Pulse Resp BP Pulse Ox 98.7 F 117 20 106/72 96 07/04/19 10:39 07/04/19 10:39 07/04/19 10:39 07/04/19 10:39 07/04/19 10:39 - General physical appearance Present: well developed, well nourished, no distress - Eyes Absent: icteric - ENT Present: normal nares - Neck Present: trachea midline - Respiratory Present: normal respiratory effort - Cardiovascular Cardiovascular exam IM: RRR - Abdomen Abdomen: Present: soft - Integumentary Present: no rash - Neurologic Present: normal coordination - Musculoskeletal Present: other (Grossly normal) Urology Results - Labs 07/04/19 10:57 07/04/19 10:57 Abnormal lab results WBC 17.2 K/mcL (4.3-11.1) H 07/04/19 10:57 Neutrophils # 14.8 K/mcL (1.6-8.9) H 07/04/19 10:57 Sodium 133 mEq/L (136-145) L 07/04/19 10:57 BUN 22 mg/dL (6-20) H 07/04/19 10:57 Creatinine 1.30 mg/dL (0.60-1.20) H 07/04/19 10:57 Est GFR ( Amer) 55 (> 60) L 07/04/19 10:57 Est GFR (Non-Af Amer) 46 (> 60) L 07/04/19 10:57 Urine Clarity Hazy (Clear) A 07/04/19 11:52 Urine Protein >=300 mg/dL (Neg-Trace) H 07/04/19 11:52 Urine Blood Moderate (Negative) H 07/04/19 11:52 Urine Bilirubin Small (Negative) H 07/04/19 11:52 Urine Urobilinogen 4.0 mg/dL (Normal) H 07/04/19 11:52 Ur Leukocyte Esterase Large (Negative) H 07/04/19 11:52 Urine Microscopic RBC 15-30 per hpf (0-3) H 07/04/19 11:52 Urine Microscopic WBC TNTC per hpf (0-3) H 07/04/19 11:52 Ur Squamous Epith Cells Many per lpf (None-Few) H 07/04/19 11:52 Urine Bacteria Moderate per hpf (None-Few) H 07/04/19 11:52 Ur Culture Indicated? YES (NO) A 07/04/19 11:52 Diabetes panel 07/04/19 Range/Units 10:57 Sodium 133 L (136-145) mEq/L Potassium 3.7 (3.5-5.1) mEq/L Chloride 99 (98-107) mEq/L Carbon Dioxide 25 (23-29) mEq/L BUN 22 H (6-20) mg/dL Creatinine 1.30 H (0.60-1.20) mg/dL Glucose 105 (70-105) mg/dL Calcium 8.7 (8.6-10.3) mg/dL Calcium panel 07/04/19 Range/Units 10:57 Calcium 8.7 (8.6-10.3) mg/dL Pituitary panel 07/04/19 Range/Units 10:57 Sodium 133 L (136-145) mEq/L Potassium 3.7 (3.5-5.1) mEq/L Chloride 99 (98-107) mEq/L Carbon Dioxide 25 (23-29) mEq/L BUN 22 H (6-20) mg/dL Creatinine 1.30 H (0.60-1.20) mg/dL Glucose 105 (70-105) mg/dL Calcium 8.7 (8.6-10.3) mg/dL Adrenal panel 07/04/19 Range/Units 10:57 Sodium 133 L (136-145) mEq/L Potassium 3.7 (3.5-5.1) mEq/L Chloride 99 (98-107) mEq/L Carbon Dioxide 25 (23-29) mEq/L BUN 22 H (6-20) mg/dL Creatinine 1.30 H (0.60-1.20) mg/dL Glucose 105 (70-105) mg/dL Calcium 8.7 (8.6-10.3) mg/dL All other labs normal. Consult Discharge Plan - Plan Referrals: NONE,PCP [Primary Care Provider] -
--- NOTE | 2019-07-04 21:04 | Anesthesia Evaluation Post Op ---
Date of Encounter: 07/04/19 Time of Encounter: 19:00 - Vital Signs Vital Signs: Vital Signs/O2 Sat/Glucose, Most Current Temp Pulse Resp BP Pulse Ox 07/04/19 19:15 98.9 F 97 16 116/67 96 07/04/19 19:05 98 16 103/61 94 07/04/19 18:55 97 16 116/53 94 07/04/19 18:45 101 16 106/93 93 07/04/19 18:35 98.4 F 106 16 120/67 92 - Lungs Lungs: Clear Ascult./Percussion - Airway Airway: Non-obstructed - Cardiovascular Regular Rate - Mental Status Mental Status: Alert & Oriented, Answers Appropriately - Pain Pain Scale: 0 - Nausea Vomiting Nausea Vomiting: Not Present - Hydration Hydration: Ice chips - Discharge PostOp Status: Transfer Patient to floor
[2019-07-04] MEDS: 0.9 % Sodium Chloride 1,000 ML IVC SCH (21:34)
[2019-07-04] MEDS: *HR* HYDROcodone/Acet 5/325 mg TABLET PO PRN (22:52)
[2019-07-05] MEDS: *HR* HYDROcodone/Acet 5/325 mg TABLET PO PRN ×3 (04:45→21:50)
[2019-07-05 05:51] LABS: Basophils % 0.1 %; Eosinophils % 0.1 %; Hematocrit 38.2 % (35.3-44.9); Hemoglobin 12.4 g/dL (11.5-15.4); Immature Granulocytes % 0.7 % (0-4); Lymphocytes # 0.8 K/mcL (0.6-4.6); Lymphocytes % 6.6 %; Mean Corpuscular HGB Conc 32.5 g/dL (31.6-35.5); Mean Corpuscular Hemoglobin 30.1 pg (28.0-33.3); Mean Corpuscular Volume 92.7 fL (83.0-100.0); Mean Platelet Volume 11.7 fL (9.4-12.4); Monocytes # 0.6 K/mcL (0.0-1.3); Monocytes % 5.1 %; Neutrophils # 10.2 K/mcL (1.6-8.9); Platelet Count 175 K/mcL (140-400); Red Blood Count 4.12 M/mcL (3.82-4.97); Red Cell Distribution Width 13.7 % (11.5-14.5); Segmented Neutrophils % 87.4 %; White Blood Count 11.7 K/mcL (4.3-11.1)
--- NOTE | 2019-07-05 06:04 | Electrocardiograph Report ---
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
[2019-07-05 06:19] LABS: BUN/Creatinine Ratio 20 (6-26); Blood Urea Nitrogen 22 mg/dL (6-20); Calcium 8.4 mg/dL (8.6-10.3); Carbon Dioxide 21 mEq/L (23-29); Chloride 101 mEq/L (98-107); Glucose 164 mg/dL (70-105); Osmolality,Calculated 285 (280-300); Potassium 3.8 mEq/L (3.5-5.1); Sodium 134 mEq/L (136-145); eGFR For African Americans > 60 (> 60); eGFR For Non-African Americans 56 (> 60)
[2019-07-05] MEDS: cefTRIAXone 1,000 MG in Water for inj. (sterile) 10 ML IVP SCH (07:50)
[2019-07-05] MEDS: Ondansetron 4 MG/2 ML VIAL IVP PRN ×2 (07:56→14:33)
--- NOTE | 2019-07-05 08:47 | Urology Progress Note ---
Date of Encounter: 07/05/19 Time of Encounter: 08:20 - Assessment and Plan (1) Left ureteral stone Current Visit: Yes Status: Acute Assessment and plan: Patient is a 39-year-old female who presents one day status post left ureter oscopy, laser lithotripsy, basket stone extraction, and stent placement. Patient is recovering very well postoperatively. Her vital signs are stable and afebrile. White blood cell count has improved from 17.2-11.7. Renal function has improved from a serum creatinine of 1.3 to 1.08. Repeat blood and urine cultures are pending. (2) Pyelonephritis Current Visit: Yes Status: Acute Assessment and plan: Patient is a 39-year-old female who presents with a history of pyelonephritis. Urine culture from 07/01/2019 is positive for pansensitive Escherichia coli. Patient is receiving IV Rocephin. Repeat blood and urine cultures are pending. Progress Note Subjective: no new complaints Narrative: POD #1. Patient seen and examined sitting upright in bed eating breakfast in no apparent distress. Patient is tolerating normal diet without nausea or vomiting. Whyte catheter recently removed. She denies any fever, chills or flank pain. Objective Initial Vital Signs Temp Pulse Resp BP Pulse Ox 98.7 F 117 20 106/72 96 07/04/19 10:39 07/04/19 10:39 07/04/19 10:39 07/04/19 10:39 07/04/19 10:39 - General physical appearance Present: no distress, no pain - Respiratory Present: normal expansion, normal respiratory effort - Abdomen Present: soft, non tender. Absent: distended - Integumentary Present: no rash, no abnormal pigmentation - Musculoskeletal Present: normal posture - Psychiatric Present: oriented to time, oriented to person, oriented to place, speech is normal, memory intact - Labs 07/05/19 04:55 07/05/19 04:55 Diabetes panel 07/04/19 07/05/19 Range/Units 10:57 04:55 Sodium 133 L 134 L (136-145) mEq/L Potassium 3.7 3.8 (3.5-5.1) mEq/L Chloride 99 101 (98-107) mEq/L Carbon Dioxide 25 21 L (23-29) mEq/L BUN 22 H 22 H (6-20) mg/dL Creatinine 1.30 H 1.08 (0.60-1.20) mg/dL Glucose 105 164 H (70-105) mg/dL Calcium 8.7 8.4 L (8.6-10.3) mg/dL Calcium panel 07/04/19 07/05/19 Range/Units 10:57 04:55 Calcium 8.7 8.4 L (8.6-10.3) mg/dL Pituitary panel 07/04/19 07/05/19 Range/Units 10:57 04:55 Sodium 133 L 134 L (136-145) mEq/L Potassium 3.7 3.8 (3.5-5.1) mEq/L Chloride 99 101 (98-107) mEq/L Carbon Dioxide 25 21 L (23-29) mEq/L BUN 22 H 22 H (6-20) mg/dL Creatinine 1.30 H 1.08 (0.60-1.20) mg/dL Glucose 105 164 H (70-105) mg/dL Calcium 8.7 8.4 L (8.6-10.3) mg/dL Adrenal panel 07/04/19 07/05/19 Range/Units 10:57 04:55 Sodium 133 L 134 L (136-145) mEq/L Potassium 3.7 3.8 (3.5-5.1) mEq/L Chloride 99 101 (98-107) mEq/L Carbon Dioxide 25 21 L (23-29) mEq/L BUN 22 H 22 H (6-20) mg/dL Creatinine 1.30 H 1.08 (0.60-1.20) mg/dL Glucose 105 164 H (70-105) mg/dL Calcium 8.7 8.4 L (8.6-10.3) mg/dL Consult Discharge Plan - Plan Referrals: NONE,PCP [Primary Care Provider] -
[2019-07-05] MEDS: 0.9 % Sodium Chloride 1,000 ML IVC SCH (10:10)
[2019-07-05] MEDS: *HR* OxyCODONE Immed Rel 5 MG TABLET PO PRN ×2 (12:09→17:24)
--- NOTE | 2019-07-05 15:31 | Event Note ---
Date of Encounter: 07/05/19 Time of Encounter: 15:20 Patient seen and examined sitting upright in bed in no apparent distress. Vital signs are stable and afebrile. Patient reports feeling very weak abdominal comfort secondary to constipation. I will order Colace twice daily. Preliminary repeat urine culture is gram negative rods and suggestive of existing Escherichia coli UTI. Plan to continue IV antibiotics and supportive care.
--- NOTE | 2019-07-05 16:02 | Internal Med Progress Note ---
Hospitalist Progress Note - Encounter Date of Encounter: 07/05/19 Time of Encounter: 16:14 - Subjective Interval History: No acute events overnight. Patient had uneventful left ureteroscopy laser, lithotripsy and stent placement yestserday. She states that she still feels "ill" thos morning and has no appetite. She however denies fever, chills and abdominal pain. - Exam Vitals: Temp Pulse Resp BP Pulse Ox 36.6 C 71 15 120/71 97 07/05/19 14:46 07/05/19 14:46 07/05/19 14:46 07/05/19 14:46 07/05/19 14:46 Exam: GENERAL: Not in distress. Alert and Oriented HEENT: EOMI, PERRLA MOUTH: Moist oral mucosa. CHEST AND LUNGS: Normal breath sounds, no wheezes or crackles HEART: S1 and S2 normal, no murmurs ABDOMEN: Soft, nontender, no organomegaly SKIN: Normal color, no rashes, no lesions EXTREMITIES: No deformity, no edema, no tenderness, no joint swelling or club annmarie NEUROLOGICAL: Normal cognition, normal motor and sensory exam. - Assessment and Plan (1) Sepsis Current Visit: Yes Status: Resolved Assessment and Plan: WBC 11.7<17.2 Vitals stable. Urine cultures yielding gram negative rods. Blood cultures pending. Continue IV antibiotics. (2) Pyelonephritis Current Visit: Yes Status: Acute Assessment and Plan: As above (3) Hydronephrosis Current Visit: Yes Status: Acute Assessment and Plan: Patient is s/p left ureteroscopy, laser lithotripsy and stent placement on 07/04/19 Urology following (4) Left ureteral stone Current Visit: Yes Status: Acute Assessment and Plan: As above (5) Acute kidney injury Current Visit: Yes Status: Resolved Assessment and Plan: Creatinine has currently normalized. We will continue gentle hydration and monitor. (6) Obesity (BMI 30-39.9) Current Visit: Yes Status: Acute Assessment and Plan: Patient has been counseled on available weight loss options. (7) DVT prophylaxis Current Visit: No Status: Acute Assessment and Plan: epcd - Time Spent with Patient Total time spent is greater than 50% in coordination of care (as documented) at patient's floor/unit and/or counseling patient: Internal Medicine: Result - Labs CBC & Chem 7: 07/05/19 04:55 07/05/19 04:55 Labs: Short CBC 07/05/19 Range/Units 04:55 WBC 11.7 H (4.3-11.1) K/mcL Hgb 12.4 (11.5-15.4) g/dL Hct 38.2 (35.3-44.9) % Plt Count 175 (140-400) K/mcL Neutrophils # 10.2 H (1.6-8.9) K/mcL BMP 07/05/19 04:55 Sodium 134 L Potassium 3.8 Chloride 101 Carbon Dioxide 21 L BUN 22 H Creatinine 1.08 Glucose 164 H Calcium 8.4 L Urine 07/04/19 Range/Units 11:52 Urine Color Dark Yellow (Yellow) Urine Clarity Hazy A (Clear) Urine pH 6.5 (5.0-8.0) pH Units Ur Specific [place] 1.024 (1.010-1.025) Urine Protein >=300 H (Neg-Trace) mg/dL Urine Glucose (UA) Normal (Normal) mg/dL - Impressions Impressions Fluoroscopy 07/04/19 19:07 IMPRESSION: Intra procedural digital fluoroscopic images as above. See procedure note for further details. D/ / Vania Ray Cha, MD / Vania Ray Cha, MD Interpreting Provider: Vania Ray Cha, MD Consult Discharge Plan - Plan Referrals: NONE,PCP [Primary Care Provider] - (1) Sepsis Qualifiers: Sepsis type: sepsis due to unspecified organism Sepsis acute organ dysfuncti on status: with acute organ dysfunction Severe sepsis acute organ dysfunction type: acute renal failure Severe sepsis shock status: without septic shock (3) Hydronephrosis Qualifiers: Hydronephrosis type: with ureteral calculous obstruction Qualified Code(s): N13.2 - Hydronephrosis with renal and ureteral calculous obstruction
[2019-07-06] MEDS: 0.9 % Sodium Chloride 1,000 ML IVC SCH ×2 (00:11→13:54)
[2019-07-06] MEDS: *HR* HYDROcodone/Acet 5/325 mg TABLET PO PRN ×5 (02:43→21:57)
[2019-07-06 07:16] LABS: Hematocrit 35.8 % (35.3-44.9); Hemoglobin 11.6 g/dL (11.5-15.4); Mean Corpuscular HGB Conc 32.4 g/dL (31.6-35.5); Mean Corpuscular Hemoglobin 29.8 pg (28.0-33.3); Mean Platelet Volume 11.2 fL (9.4-12.4); Platelet Count 222 K/mcL (140-400); Red Blood Count 3.89 M/mcL (3.82-4.97); Red Cell Distribution Width 14.3 % (11.5-14.5); White Blood Count 13.2 K/mcL (4.3-11.1)
[2019-07-06 07:33] LABS: BUN/Creatinine Ratio 17 (6-26); Blood Urea Nitrogen 15 mg/dL (6-20); Calcium 8.5 mg/dL (8.6-10.3); Carbon Dioxide 28 mEq/L (23-29); Chloride 103 mEq/L (98-107); Glucose 102 mg/dL (70-105); Osmolality,Calculated 283 (280-300); Potassium 3.5 mEq/L (3.5-5.1); Sodium 136 mEq/L (136-145); eGFR For African Americans > 60 (> 60); eGFR For Non-African Americans > 60 (> 60)
[2019-07-06] MEDS: cefTRIAXone 1,000 MG in Water for inj. (sterile) 10 ML IVP SCH (08:41)
[2019-07-06] MEDS: Ondansetron 4 MG/2 ML VIAL IVP PRN (08:42)
[2019-07-06] MEDS: *HR* OxyCODONE Immed Rel 5 MG TABLET PO PRN (08:58)
--- NOTE | 2019-07-06 11:56 | Urology Progress Note ---
Date of Encounter: 07/06/19 Time of Encounter: 11:53 - Assessment and Plan (1) Kidney stone Current Visit: Yes Status: Acute Assessment and plan: Slowly resolving discomfort status post ureteroscopy laser lithotripsy on 07/04/2019 obstructing infected stone. Plan: Outpatient management stent as per Dr. Ramirez. (2) Urinary tract infection Current Visit: Yes Status: Acute Assessment and plan: Repeat culture from the date of surgery on 07/04/2019 shows pansensitive Escherichia coli. White count 13. No fevers. Patient is on IV ceftriaxone. Plan: IV antibiotic management as per primary service. Qualifiers: Urinary tract infection type: site unspecified Hematuria presence: without hematuria Qualified Code(s): N39.0 - Urinary tract infection, site not specified Progress Note Subjective: no new complaints Objective Initial Vital Signs Temp Pulse Resp BP Pulse Ox 98.7 F 117 20 106/72 96 07/04/19 10:39 07/04/19 10:39 07/04/19 10:39 07/04/19 10:39 07/04/19 10:39 - Respiratory Present: normal respiratory effort - Musculoskeletal Present: normal posture - Psychiatric Present: oriented to time, oriented to person, oriented to place - Labs 07/06/19 06:54 07/06/19 06:54 Diabetes panel 07/06/19 Range/Units 06:54 Sodium 136 (136-145) mEq/L Potassium 3.5 (3.5-5.1) mEq/L Chloride 103 (98-107) mEq/L Carbon Dioxide 28 (23-29) mEq/L BUN 15 (6-20) mg/dL Creatinine 0.86 (0.60-1.20) mg/dL Glucose 102 (70-105) mg/dL Calcium 8.5 L (8.6-10.3) mg/dL Calcium panel 07/06/19 Range/Units 06:54 Calcium 8.5 L (8.6-10.3) mg/dL Pituitary panel 07/06/19 Range/Units 06:54 Sodium 136 (136-145) mEq/L Potassium 3.5 (3.5-5.1) mEq/L Chloride 103 (98-107) mEq/L Carbon Dioxide 28 (23-29) mEq/L BUN 15 (6-20) mg/dL Creatinine 0.86 (0.60-1.20) mg/dL Glucose 102 (70-105) mg/dL Calcium 8.5 L (8.6-10.3) mg/dL Adrenal panel 07/06/19 Range/Units 06:54 Sodium 136 (136-145) mEq/L Potassium 3.5 (3.5-5.1) mEq/L Chloride 103 (98-107) mEq/L Carbon Dioxide 28 (23-29) mEq/L BUN 15 (6-20) mg/dL Creatinine 0.86 (0.60-1.20) mg/dL Glucose 102 (70-105) mg/dL Calcium 8.5 L (8.6-10.3) mg/dL Consult Discharge Plan - Plan Referrals: NONE,PCP [Primary Care Provider] -
--- NOTE | 2019-07-06 11:59 | Internal Med Progress Note ---
Hospitalist Progress Note - Encounter Date of Encounter: 07/06/19 Time of Encounter: 08:15 - Subjective Interval History: No acute events overnight. Patient state that she still feels ill but is much better than yesterday. She denies, nausea, vomiting, fever, chills and abdominal pain. - Exam Vitals: Temp Pulse Resp BP Pulse Ox 36.9 C 79 14 132/79 96 07/06/19 10:06 07/06/19 10:06 07/06/19 10:06 07/06/19 10:06 07/06/19 10:06 Exam: GENERAL: Not in distress. Alert and Oriented HEENT: EOMI, PERRLA MOUTH: Moist oral mucosa. CHEST AND LUNGS: Normal breath sounds, no wheezes or crackles HEART: S1 and S2 normal, no murmurs ABDOMEN: Soft, nontender, no organomegaly SKIN: Normal color, no rashes, no lesions EXTREMITIES: No deformity, no edema, no tenderness, no joint swelling or clubbing NEUROLOGICAL: Normal cognition, normal motor and sensory exam. - Assessment and Plan (1) Sepsis Current Visit: Yes Status: Resolved Assessment and Plan: WBC 13.2>11.7 Vitals stable. Urine cultures yielding pansenstitive E.Coli Blood cultures pending. Continue IV antibiotics. Possible discharge tomorrow on oral antibiotics. (2) Pyelonephritis Current Visit: Yes Status: Acute Assessment and Plan: As above (3) Hydronephrosis Current Visit: Yes Status: Acute Assessment and Plan: Patient is s/p left ureteroscopy, laser lithotripsy and stent placement on 07/04/19 Urology following (4) Left ureteral stone Current Visit: Yes Status: Acute Assessment and Plan: As above (5) Acute kidney injury Current Visit: Yes Status: Resolved Assessment and Plan: Creatinine has currently normalized. We will continue gentle hydration and monitor. (6) Obesity (BMI 30-39.9) Current Visit: Yes Status: Acute Assessment and Plan: Patient has been counseled on available weight loss options. (7) DVT prophylaxis Current Visit: No Status: Acute Assessment and Plan: epcd - Time Spent with Patient Total time spent is greater than 50% in coordination of care (as documented) at patient's floor/unit and/or counseling patient: Internal Medicine: Result - Labs CBC & Chem 7: 07/06/19 06:54 07/06/19 06:54 Labs: Short CBC 07/06/19 Range/Units 06:54 WBC 13.2 H (4.3-11.1) K/mcL Hgb 11.6 (11.5-15.4) g/dL Hct 35.8 (35.3-44.9) % Plt Count 222 (140-400) K/mcL BMP 07/06/19 06:54 Sodium 136 Potassium 3.5 Chloride 103 Carbon Dioxide 28 BUN 15 Creatinine 0.86 Glucose 102 Calcium 8.5 L Urine 07/04/19 Range/Units 11:52 Urine Color Dark Yellow (Yellow) Urine Clarity Hazy A (Clear) Urine pH 6.5 (5.0-8.0) pH Units Ur Specific [place] 1.024 (1.010-1.025) Urine Protein >=300 H (Neg-Trace) mg/dL Urine Glucose (UA) Normal (Normal) mg/dL Consult Discharge Plan - Plan Referrals: NONE,PCP [Primary Care Provider] - (1) Sepsis Qualifiers: Sepsis type: sepsis due to unspecified organism Sepsis acute organ dysfunction status: with acute organ dysfunction Severe sepsis acute organ dysfunction type: acute renal failure Severe sepsis shock status: without septic shock (3) Hydronephrosis Qualifiers: Hydronephrosis type: with ureteral calculous obstruction Qualified Code(s): N13.2 - Hydronephrosis with renal and ureteral calculous obstruction
[2019-07-06] MEDS: *HR* Promethazine 25 MG/ML VIAL IVP PRN ×2 (14:08→22:02)
[2019-07-07] MEDS: 0.9 % Sodium Chloride 1,000 ML IVC SCH ×2 (01:45→18:46)
[2019-07-07] MEDS: *HR* HYDROcodone/Acet 5/325 mg TABLET PO PRN ×4 (02:16→23:07)
[2019-07-07] MEDS: *HR* Promethazine 25 MG/ML VIAL IVP PRN ×2 (06:57→14:18)
[2019-07-07 08:14] LABS: Basophils # 0.1 K/mcL (0.0-0.2); Basophils % 0.7 %; Eosinophils # 0.5 K/mcL (0.0-0.6); Eosinophils % 3.3 %; Hematocrit 34.7 % (35.3-44.9); Hemoglobin 11.3 g/dL (11.5-15.4); Immature Granulocytes % 2.2 % (0-4); Lymphocytes # 2.5 K/mcL (0.6-4.6); Mean Corpuscular HGB Conc 32.6 g/dL (31.6-35.5); Mean Corpuscular Hemoglobin 29.6 pg (28.0-33.3); Mean Corpuscular Volume 90.8 fL (83.0-100.0); Mean Platelet Volume 10.6 fL (9.4-12.4); Monocytes % 11.2 %; Neutrophils # 8.9 K/mcL (1.6-8.9); Platelet Count 240 K/mcL (140-400); Red Blood Count 3.82 M/mcL (3.82-4.97); Red Cell Distribution Width 14.2 % (11.5-14.5); Segmented Neutrophils % 64.6 %; White Blood Count 13.8 K/mcL (4.3-11.1)
[2019-07-07 08:25] LABS: Monocytes # 1.6 K/mcL (0.0-1.3); Plasma Cells Present (Not Present); Platelet Estimate Normal (Normal)
--- NOTE | 2019-07-07 11:00 | Urology Progress Note ---
Date of Encounter: 07/07/19 Time of Encounter: 10:59 - Assessment and Plan (1) Kidney stone Current Visit: Yes Status: Acute Assessment and plan: Doing well after left ureteroscopy. She still has mild low-grade temperatures. Pyelonephritis can take some time to resolve. She is on culture appropriate antibiotics. Appreciate hospital support. Okay to discharge home once she remains afebrile. We will arrange for follow-up in the urology clinic for a cystoscopy and stent removal in one week. (2) Pyelonephritis Current Visit: Yes Status: Acute Progress Note Narrative: Doing well after left ureteroscopic stone extraction with a urinary tract infection. She has had some mild low-grade temperatures, but is feeling better. She is voiding well. Objective Initial Vital Signs Temp Pulse Resp BP Pulse Ox 98.7 F 117 20 106/72 96 07/04/19 10:39 07/04/19 10:39 07/04/19 10:39 07/04/19 10:39 07/04/19 10:39 - General physical appearance Present: well developed, well nourished, no distress - Respiratory Present: normal respiratory effort - Abdomen Present: soft - Labs 07/07/19 07:51 07/06/19 06:54 Consult Discharge Plan - Plan Referrals: NONE,PCP [Primary Care Provider] -
--- NOTE | 2019-07-07 11:16 | Internal Med Progress Note ---
Hospitalist Progress Note - Encounter Date of Encounter: 07/07/19 Time of Encounter: 11:15 - Subjective Interval History: Patient had a temperature spike of 37.9 degrees celsius at 7pm laast night. She states that she still feels unwell. She denies fever, abdominal pain, chills and vomiting. - Exam Vitals: Temp Pulse Resp BP Pulse Ox 36.8 C 91 15 109/74 96 07/07/19 10:32 07/07/19 10:32 07/07/19 10:32 07/07/19 10:32 07/07/19 07:09 Exam: GENERAL: Not in distress. Alert and Oriented HEENT: EOMI, PERRLA MOUTH: Moist oral mucosa. CHEST AND LUNGS: Normal breath sounds, no wheezes or crackles HEART: S1 and S2 normal, no murmurs ABDOMEN: Soft, nontender, no organomegaly SKIN: Normal color, no rashes, no lesions EXTREMITIES: No deformity, no edema, no tenderness, no joint swelling or clubbing NEUROLOGICAL: Normal cognition, normal motor and sensory exam. - Assessment and Plan (1) Sepsis Current Visit: Yes Status: Resolved Assessment and Plan: WBC 13.8>13.2 Vitals stable. Urine cultures yielding pansenstitive E.Coli Blood cultures pending. Increase ceftriaxone to 2 g daily Possible discharge tomorrow on oral antibiotics. (2) Pyelonephritis Current Visit: Yes Status: Acute Assessment and Plan: As above (3) Hydronephrosis Current Visit: Yes Status: Acute (4) Left ureteral stone Current Visit: Yes Status: Acute Assessment and Plan: As above (5) Acute kidney injury Current Visit: Yes Status: Resolved Assessment and Plan: Creatinine has currently normalized. We will continue gentle hydration and monitor. (6) Obesity (BMI 30-39.9) Current Visit: Yes Status: Acute Assessment and Plan: Patient has been counseled on available weight loss options. (7) DVT prophylaxis Current Visit: No Status: Acute Assessment and Plan: epcd - Time Spent with Patient Total time spent is greater than 50% in coordination of care (as documented) at patient's floor/unit and/or counseling patient: Internal Medicine: Result - Labs CBC & Chem 7: 07/07/19 07:51 07/06/19 06:54 Labs: Short CBC 07/07/19 Range/Units 07:51 WBC 13.8 H (4.3-11.1) K/mcL Hgb 11.3 L (11.5-15.4) g/dL Hct 34.7 L (35.3-44.9) % Plt Count 240 (140-400) K/mcL Neutrophils # 8.9 (1.6-8.9) K/mcL Consult Discharge Plan - Plan Referrals: NONE,PCP [Primary Care Provider] - ____ (1) Sepsis Qualifiers: Sepsis type: sepsis due to unspecified organism Sepsis acute organ dysfunction status: with acute organ dysfunction Severe sepsis acute organ dysfunction type: acute renal failure Severe sepsis shock status: without septic shock (3) Hydronephrosis Qualifiers: Hydronephrosis type: with ureteral calculous obstruction Qualified Code(s): N13.2 - Hydronephrosis with renal and ureteral calculous obstruction
[2019-07-07] MEDS ORDERED: cefTRIAXone 1,000 MG in Water for inj. (sterile) 10 ML IVP ONE (11:18)
[2019-07-07] MEDS: Ondansetron 4 MG/2 ML VIAL IVP PRN (18:54)
[2019-07-07] MEDS: *HR* OxyCODONE Immed Rel 5 MG TABLET PO PRN (18:54)
[2019-07-07] MEDS ORDERED: Ondansetron ODT 4 MG TAB.RAPDIS SL PRN (20:32)
[2019-07-08 04:20] LABS: Hematocrit 35.1 % (35.3-44.9); Hemoglobin 11.6 g/dL (11.5-15.4); Mean Corpuscular Hemoglobin 30.4 pg (28.0-33.3); Mean Corpuscular Volume 92.1 fL (83.0-100.0); Mean Platelet Volume 10.6 fL (9.4-12.4); Monocytes # 1.1 K/mcL (0.0-1.3); Platelet Count 270 K/mcL (140-400); Red Blood Count 3.81 M/mcL (3.82-4.97); Red Cell Distribution Width 14.3 % (11.5-14.5); White Blood Count 13.6 K/mcL (4.3-11.1)
[2019-07-08 04:38] LABS: BUN/Creatinine Ratio 11 (6-26); Blood Urea Nitrogen 9 mg/dL (6-20); Calcium 8.4 mg/dL (8.6-10.3); Carbon Dioxide 25 mEq/L (23-29); Chloride 103 mEq/L (98-107); Glucose 92 mg/dL (70-105); Osmolality,Calculated 284 (280-300); Potassium 3.8 mEq/L (3.5-5.1); Sodium 138 mEq/L (136-145); eGFR For African Americans > 60 (> 60); eGFR For Non-African Americans > 60 (> 60)
[2019-07-08] MEDS: *HR* HYDROcodone/Acet 5/325 mg TABLET PO PRN ×3 (05:05→13:52)
[2019-07-08 05:54] LABS: Eosinophils # 0.3 K/mcL (0.0-0.6); Lymphocytes # 2.2 K/mcL (0.6-4.6); Neutrophils # 10.1 K/mcL (1.6-8.9); Platelet Estimate Normal (Normal)
[2019-07-08] MEDS ORDERED: Isovue-370 500 ML BOTTLE IVP ONE (08:46)
[2019-07-08] MEDS: 0.9 % Sodium Chloride 1,000 ML IVC SCH (09:32)
[2019-07-08] MEDS: cefTRIAXone 2,000 MG in Water for inj. (sterile) 20 ML IVP SCH ×2 (09:32→11:37)
[2019-07-08 10:24] VITALS: BP 135/81
--- NOTE | 2019-07-08 13:54 | Discharge Summary ---
Orders not resulted at time of discharge: Pending orders 07/04/19 15:39 Culture,Blood [BC] Stat 07/04/19 18:39 Calculi (stone) Analysis Routine Date of Encounter: 07/08/19 Time of Encounter: 13:48 - Discharge Diagnosis (1) Sepsis Priority: Primary Status: Resolved Qualifiers: Sepsis type: Escherichia coli Sepsis acute organ dysfunction status: with acute organ dysfunction Severe sepsis acute organ dysfunction type: acute renal failure Acute renal failure type: unspecified Severe sepsis shock status: without septic shock Qualified Code(s): A41.51 - Sepsis due to Escherichia coli [E. coli]; R65.20 - Severe sepsis without septic shock; N17.9 - Acute kidney failure, unspecified (2) Pyelonephritis Priority: Secondary Status: Acute (3) Hydronephrosis Priority: Secondary Status: Acute Qualifiers: Hydronephrosis type: with ureteral calculous obstruction Qualified Code(s): N13.2 - Hydronephrosis with renal and ureteral calculous obstruction (4) Left ureteral stone Priority: Secondary Status: Acute (5) Acute kidney injury Priority: Secondary Status: Resolved (6) Obesity (BMI 30-39.9) Priority: Secondary Status: Acute (7) DVT prophylaxis Priority: Secondary Status: Acute Hospital course: Ms. Servin is a 39 year old female who was admitted and managed for sepsis secondary to acute pyelonephritis as a complication of ureterolithiasis. She had uneventful stent placement by urology and repeat CT scan showed resolving hydronephrosis. Patient however has not been afebrile for more than 24 hours since he had a fever of 37.7 degrees celsius last night. I explained to her that it would be prudent to observe and continue IV antibiotics till she has been afebrile for a day but patient stated that she really needed to go home so she can smoke. Repeat CT Scan did not show an abscess in the renal parenchyma. I Will discharge her on PO Ciprofloxacin to follow up shortly with urology. Discharge discussed with: patient, nurse, product development consultant - Time Spent with Patient Total time spent providing and/or coordinating discharge services: Time spent: Greater than 30 minutes (45 minutes) - Discharge Medications Prescriptions: New Ciprofloxacin [Cipro] 500 mg PO BID #24 tablet Home Medications: Ciprofloxacin [Cipro] 500 mg PO BID #24 tablet 07/08/19 [Rx] Allergies/Adverse Reactions: Allergy/AdvReac Type Severity Reaction Status Date / Time No Known Allergies Allergy Verified 07/04/19 10:38 Date of admission: 07/04/19 15:24 Primary care physician: PCP NONE Consults: 07/04/19 14:01 Consult to Urology [CONS] Stat Consulting Provider: Urology Kaylah Reason for Consult: Possible pyelonephritis 2/2 complicated nephrolithiasis Time Notified: 14:02 Call Completed: Yes - Constitutional Vitals: Temp Pulse Resp BP Pulse Ox 36.7 C 86 15 135/81 97 07/08/19 10:20 07/08/19 10:20 07/08/19 10:20 07/08/19 10:20 07/08/19 10:20 Exam: GENERAL: Not in distress. Alert and Oriented HEENT: EOMI, PERRLA MOUTH: Moist oral mucosa. CHEST AND LUNGS: Normal breath sounds, no wheezes or crackles HEART: S1 and S2 normal, no murmurs ABDOMEN: Soft, nontender, no organomegaly SKIN: Normal color, no rashes, no lesions EXTREMITIES: No deformity, no edema, no tenderness, no joint swelling or clubbing NEUROLOGICAL: Normal cognition, normal motor and sensory exam. - Patient Status Disposition: Home, Self-Care Condition: Fair Functional capacity at discharge: independent ambulation Overall status at discharge: patient is progressing back to baseline - Discharge Instructions Follow Up With: NONE,PCP [Primary Care Provider] - Shon Ramirez MD [Partnered Physician] - - Diet and Activity Activity: resume usual activities as tolerated Diet: advance to your usual diet
--- NOTE | 2019-07-08 14:26 | Urology Progress Note ---
Date of Encounter: 07/08/19 Time of Encounter: 13:35 - Assessment and Plan (1) Left ureteral stone Current Visit: Yes Status: Acute Assessment and plan: Patient is a 39-year-old female who presents 4 days status post left uretero scopy, laser lithotripsy, basket stone extraction, and stent placement. Patient is recovering well and will follow up in the office within 1 week for a cystoscopy and stent removal by Dr. Ramirez. (2) Pyelonephritis Current Visit: Yes Status: Acute Assessment and plan: Patient is a 39-year-old female who presents with pansensitive Escherichia coli left pyelonephritis. Patient has remained afebrile throughout the day, and she is feeling much improved. Patient is receiving IV Rocephin. Urology r ecommended additional 10-14 days of culture sensitive oral antibiotics. Progress Note Subjective: no new complaints, feels better Narrative: POD #4. Patient seen and examined sitting upright in bed in no apparent distress. Patient reports she is feeling much improved, and she denies any fever, chills, flank pain, dysuria or gross hematuria. Objective Initial Vital Signs Temp Pulse Resp BP Pulse Ox 98.7 F 117 20 106/72 96 07/04/19 10:39 07/04/19 10:39 07/04/19 10:39 07/04/19 10:39 07/04/19 10:39 - General physical appearance Present: no distress, no pain - Respiratory Present: normal expansion, normal respiratory effort - Abdomen Present: soft, non tender. Absent: distended - Genitourinary Urine Appearance: Present: Clear - Integumentary Present: no rash, no abnormal pigmentation - Musculoskeletal Present: normal posture - Psychiatric Present: oriented to time, oriented to person, oriented to place, speech is normal, memory intact - Labs 07/08/19 03:46 07/08/19 03:46 Diabetes panel 07/08/19 Range/Units 03:46 Sodium 138 (136-145) mEq/L Potassium 3.8 (3.5-5.1) mEq/L Chloride 103 (98-107) mEq/L Carbon Dioxide 25 (23-29) mEq/L BUN 9 (6-20) mg/dL Creatinine 0.85 (0.60-1.20) mg/dL Glucose 92 (70-105) mg/dL Calcium 8.4 L (8.6-10.3) mg/dL Calcium panel 07/08/19 Range/Units 03:46 Calcium 8.4 L (8.6-10.3) mg/dL Pituitary panel 07/08/19 Range/Units 03:46 Sodium 138 (136-145) mEq/L Potassium 3.8 (3.5-5.1) mEq/L Chloride 103 (98-107) mEq/L Carbon Dioxide 25 (23-29) mEq/L BUN 9 (6-20) mg/dL Creatinine 0.85 (0.60-1.20) mg/dL Glucose 92 (70-105) mg/dL Calcium 8.4 L (8.6-10.3) mg/dL Adrenal panel 07/08/19 Range/Units 03:46 Sodium 138 (136-145) mEq/L Potassium 3.8 (3.5-5.1) mEq/L Chloride 103 (98-107) mEq/L Carbon Dioxide 25 (23-29) mEq/L BUN 9 (6-20) mg/dL Creatinine 0.85 (0.60-1.20) mg/dL Glucose 92 (70-105) mg/dL Calcium 8.4 L (8.6-10.3) mg/dL Consult Discharge Plan - Plan Instructions: Urinary Tract Infection in Women (DC) Referrals: Shon Ramirez MD [Partnered Physician] - 07/16/19 10:30 am NONE,PCP [Primary Care Provider] - Prescriptions: Ciprofloxacin [Cipro] 500 mg PO BID #24 tablet Transmission Status: Received by [facility] #[id number]
[2019-07-09 09:55] LABS: Calculi Mass 18 mg
== END 2019-07-08 14:29 | disposition home or self-care (01) | DRG 854 ==
LOC: 3ANU 10:05 → EMEROOARM 10:05 → 3ANU 14:40 → SUATTDRO 15:24
PROVIDERS: ADMIT Internal Medicine; ATTEND Internal Medicine